=== PATIENT | female | born 1965 | race Caucasian/White ===

== ENCOUNTER 2019-07-26 11:37 | Observation (INO) | payer OTHER ==
[2019-07-26] MEDS ORDERED: Albuterol/Ipratropium NEB.SOL* Albuterol 2.5 MG/Ipratropium 0.5 MG 3 ML INH ONE (11:51)
--- NOTE | 2019-07-26 11:51 | ED ---
Respiratory - HPI Summary HPI Summary: 53 year old F presenting to [facility] with a chief complaint of a cough and sore throat since 2 weeks ago, worse since 3 days ago. The patient rates the pain 6/ 10 in severity. Patient reports hot flashes. Symptoms aggravated by nothing. Symptoms slightly alleviated by Albuterol. Patient denies any vomiting, diarrhea , leg pain or swelling, travel outside of the country, or contact with anyone diagnosed with coronavirus. Patient reports finishing antibiotics recently and that her cough developed a few days later. She was seen by her PCP today who advised her to come to the emergency department for further evaluation. Medication list reviewed. Allergy list reviewed. Home Medications Medication Instructions Recorded Confirmed Type Albuterol HFA INHALER* [Ventolin 2 puff INH Q4H PRN 06/09/18 06/09/18 History HFA Inhaler*] Atorvastatin* [Lipitor 20 MG*] 10 mg PO BEDTIME 06/09/18 06/09/18 History Levothyroxine TAB* [Synthroid TAB*] 1 tab PO QAM 06/09/18 06/09/18 History Varenicline (NF) [Chantix 1 MG TAB 1 tab PO BID 06/09/18 06/09/18 History (NF)] - History of Current Complaint Chief Complaint: EDUpperRespComplaint Stated Complaint: GENERAL ILLNESS PER EMS Time Seen by Provider: 07/26/19 11:43 Hx Obtained From: Patient Onset/Duration: Lasting Days, Still Present Timing: Constant Current Severity: Moderate Pain Intensity: 6 Aggravating Factor(s): Nothing Alleviating Factor(s): Other - Albuterol Associated Signs and Symptoms: Negative - Vomiting, diarrhea, leg pain or swelling - Allergy/Home Medications Allergies/Adverse Reactions: Allergies Allergy/AdvReac Type Severity Reaction Status Date / Time bee venom protein (honey bee) Allergy Difficulty Verified 06/09/18 15:12 Breathing codeine Allergy Difficulty Verified 06/09/18 15:12 Breathing Home Medications: Home Medications Albuterol HFA INHALER* [Ventolin HFA Inhaler*] 2 puff INH Q4H PRN 06/09/18 [ History Confirmed 07/26/19] Levothyroxine TAB* [Synthroid TAB*] 175 mcg PO QAM 06/09/18 [History Confirmed 07/26/19] Varenicline (NF) [Chantix 1 MG TAB (NF)] 1 tab PO BID 06/09/18 [History Confirmed 07/26/19] Ibuprofen 600 mg PO Q6H PRN 07/26/19 [History Confirmed 07/26/19] Multivitamins/Minerals TAB* [Theragran/minerals TAB*] 1 tab PO DAILY 07/26/19 [ History Confirmed 07/26/19] Nyquil Liquid 30 ml PO Q6H 07/26/19 [History Confirmed 07/26/19] PMH/Surg Hx/FS Hx/Imm Hx Endocrine/Hematology History: Reports: Hx Thyroid Disease - hypothyroidism Denies: Hx Diabetes Cardiovascular History: Reports: Hx Hypercholesterolemia Denies: Hx Hypertension GI History: Reports: Hx Gastroesophageal Reflux Disease History: Denies: Hx Renal Disease Musculoskeletal History: Denies: Hx Osteoporosis - Cancer History Cancer Type, Location and Year: THYROID Hx Chemotherapy: No Hx Radiation Therapy: Yes - RADIATION STARTING 07/03, THRYOID CANCER - Surgical History Surgery Procedure, Year, and Place: UTERINE ABLASION Infectious Disease History: No Infectious Disease History: Denies: History Other Infectious Disease, Traveled Outside the [place] in Last 30 Days - Family History Known Family History: Negative: Renal Disease - Social History Alcohol Use: None Substance Use Type: Reports: Excessive Caffeine Hx Tobacco Use: Yes Smoking Status (MU): Former Smoker Type: Cigarettes Amount Used/How Often: 1/2 PPD Review of Systems Positive: Other - Hot flashes Positive: Sore Throat Positive: Cough Negative: Vomiting, Diarrhea Musculoskeletal: Negative - Leg pain or swelling All Other Systems Reviewed And Are Negative: Yes Physical Exam - Summary Physical Exam Summary: Constitutional: Well-developed, Well-nourished, Alert. (-) Distressed Skin: Warm, Dry HENT: Normocephalic; Atraumatic Eyes: Conjunctiva normal Neck: Musculoskeletal ROM normal neck. (-) JVD, (-) Stridor, (-) Tracheal deviation Cardio: Rhythm regular, rate normal, Heart sounds normal; Intact distal pulses; Radial pulses are 2+ and symmetric. (-) Murmur Pulmonary/Chest wall: Effort normal. (-) Respiratory distress, expiratory wheezing in all lung zavaleta, left base with rhonchi. Abd: Soft, (-) tenderness, (-) Distension, (-) Guarding, (-) Rebound Musculoskeletal: (-) Edema Lymph: (-) Cervical adenopathy Neuro: Alert, Oriented x3 Psych: Mood and affect Normal Triage Information Reviewed: Yes Vital Signs On Initial Exam: Initial Vitals Temp Pulse Resp BP Pulse Ox 98.3 F 109 19 117/82 97 07/26/19 11:39 07/26/19 11:39 07/26/19 11:39 07/26/19 11:39 07/26/19 11:39 Vital Signs Reviewed: Yes Procedures - Sedation Patient Received Moderate/Deep Sedation with Procedure: No Diagnostics - Vital Signs Vital Signs Temp Pulse Resp BP Pulse Ox 07/26/19 11:39 98.3 F 109 19 117/82 97 - Laboratory Result Diagrams: 07/26/19 12:07 07/26/19 12:07 Lab Statement: Any lab studies that have been ordered have been reviewed, and results considered in the medical decision making process. - Radiology Chest x-ray Radiology Interpretation Completed By: Radiologist Summary of Radiographic Findings: No active cardiopulmonary disease is noted. ED physician has reviewed this report. - CT Chest/Thorax CTA CT Interpretation Completed By: Radiologist Summary of CT Findings: 1. No CT of evidence of pulmonary embolism. 2. There are densities in the medial aspect of the right upper lung with mild right hilar. lymphadenopathy as described above. Differential diagnosis includes atelectasis,. infectious pneumonia, inflammatory disease or neoplasm. ED physician has reviewed this report. - EKG 12:00 Cardiac Rate: Tachycardia - 107 BPM EKG Rhythm: Sinus Tachycardia Summary of EKG Findings: No ischemic changes. ED physician has reviewed and interpreted this EKG. Disposition - Course Course Of Treatment: Patient's here your eye symptoms, fever, cough. Patient was tachycardic upon arrival and borderline hypoxic. Patient had blood performed which was grossly unremarkable outside of evidence of hyperthyroid. Patient had a chest x-ray which showed no obvious abnormality. Due to patient' s subsequent hypoxia, a CTA of her chest was performed which showed a right upper lobe infiltrate versus cancer. Given patient's critical pictured is likely an infiltrate so she was treated with antibiotics. Patient was admitted to the hospital as she remained tachycardic. - Diagnoses Provider Diagnoses: Pneumonia, Tachycardia, Cough, Fever - Physician Notifications Discussed Care Of Patient With: Katherine Moreno Time Discussed With Above Provider: 15:30 Instructed by Provider To: Other - Discussed with Dr. Moreno who will admit the patient. Discharge ED - Sign-Out/Discharge Documenting (check all that apply): Patient Departure - Discharge Plan Condition: Stable Disposition: ADMITTED TO [facility] Referrals: Khadra Rabago [Primary Care Provider] - - Billing Disposition and Condition Condition: STABLE Disposition: Admitted to [facility] - Attestation Statements Document Initiated by Perryibe: Yes Documenting Scribe: Mulu Pacheco Provider For Whom Elieser is Documenting (Include Credential): Juan Miguel Garces MD Scribe Attestation: Mulu Olmos, scribed for Juan Miguel Garces MD on 07/26/19 at 1713. Scribe Documentation Reviewed: Yes Provider Attestation: The documentation as recorded by the Mulu correia accurately reflects the service I personally performed and the decisions made by Juan Miguel carr MD Status of Scribe Document: Viewed
[2019-07-26 12:15] LABS: ABS Basophils 0.1 10^3/ul (0-0.2); ABS Eosinophils 0.1 10^3/ul (0-0.6); ABS Lymphocytes 2.4 10^3/ul (1.0-4.8); ABS Monocytes 0.7 10^3/ul (0-0.8); ABS Neutrophils 6.2 10^3/ul (1.5-7.7); Eosinophil % 0.8 %; Hematocrit 41 % (35-47); Hemoglobin 14.1 g/dL (12.0-16.0); Lymphocyte % 25.6 %; Mean Corpuscular HGB Conc 35 g/dL (31-36); Mean Corpuscular Hemoglobin 30 pg (27-31); Mean Corpuscular Volume 88 fL (80-97); Mean Platelet Volume 8.3 fL (7.4-10.4); Platelet Count 264 10^3/uL (150-450); Red Blood Count 4.65 10^6 /uL (3.70-4.87); Red Cell Distribution Width 14 % (10-15); White Blood Count 9.4 10^3/uL (3.5-10.8)
[2019-07-26 12:34] LABS: Albumin 4.2 g/dL (3.2-5.2); Albumin/Globulin Ratio 1.4 (1-3); Calcium 9.8 mg/dL (8.6-10.3); EGFR African American 94.5 (>60); EGFR Non-African American 78.1 (>60); Total Bilirubin 0.4 mg/dL (0.2-1.0); Total Protein 7.2 g/dL (6.4-8.9)
[2019-07-26] MEDS ORDERED: Ibuprofen TAB* 600 MG PO ONE (13:04)
[2019-07-26] MEDS ORDERED: NS 0.9% 1000 ML** 1,000 ML IV ONE (13:04)
[2019-07-26] MEDS ORDERED: Iohexol 350* (CONTRAST) 500 ML MDV IV ONE (13:22)
[2019-07-26 14:05] LABS: TSH (Thyroid Stimulating Horm) 0.21 mcIU/mL (0.34-5.60)
[2019-07-26 14:53] LABS: Free T4 1.15 ng/dL (0.61-1.12)
[2019-07-26] MEDS ORDERED: cefTRIAXone(*) 1 GM in NS 0.9% 50 ML* 50 ML IVPB ONE (15:06)
[2019-07-26] MEDS ORDERED: Azithromycin 500 mg/250 ml NS 500 MG/250 ML BAG IVPB ONE (15:06)
[2019-07-26] MEDS ORDERED: Albuterol/Ipratropium NEB.SOL* Albuterol 2.5 MG/Ipratropium 0.5 MG 3 ML INH PRN (16:30)
[2019-07-26] MEDS ORDERED: Albuterol HFA INHALER* 8 gm MDI INH PRN (16:40)
[2019-07-26 17:13] LABS: Urine Appearance Clear; Urine Bilirubin Negative (Negative); Urine Blood Negative (Negative); Urine Color Yellow; Urine Glucose Negative (Negative); Urine Ketones Negative (Negative); Urine Nitrite Negative (Negative); Urine Protein Negative (Negative); Urine Urobilinogen Negative (Negative)
[2019-07-26 18:12] LABS: Magnesium 2.1 mg/dL (1.9-2.7)
--- NOTE | 2019-07-26 19:04 | HP ---
ADMISSION HISTORY AND PHYSICAL: DATE OF ADMISSION: 07/26/19 PRIMARY CARE PROVIDER: Khadra Rabago NP ADMITTING PHYSICIAN: Dr. Moreno * (dictated by Rafael Brice NP). CHIEF COMPLAINT: Sick for 3 to 4 weeks. HISTORY OF PRESENT ILLNESS: Ms. Sharp is a 53-year-old female with past medical history significant for hypothyroidism, hypercholesterolemia. She states that she had an appointment with her PCP today, which was a scheduled annual appointment and she was sent to the ER because of her tachycardia and low oxygen saturation levels. She states that she had a sinus infection a few weeks ago, was given Augmentin which she completed and then started to feel a little bit better. However, over the last 2 weeks, she has started feeling worse and states that over the last week especially she has been feeling much worse. She complains of cough for 2 weeks, which has been getting progressively worse along with sore throat. She has had significant shortness of breath with harsh cough since Tuesday. She states that her shortness of breath will resolve when she is not coughing. She also complains that with excessive coughing she will get a pain in the middle of her chest, which again resolves with cessation of coughing. She has taken her albuterol at home, which helped her a little bit, but not very much. She states that she has been coughing up yellow-green to frothy white sputum multiple times throughout the day. She does report having hot flashes. Denies any recent travel or known contact with anyone with coronavirus. She denies any other chest pain, shortness of breath not associated with coughing, nausea, vomiting, diarrhea, unusual swelling, history of bleeding or clotting disorders, myalgias. She recently quit smoking 1 plus weeks ago. She has been on Chantix. She has a significant smoking history starting at age 13, so for approximately 40 years. States she was smoking about 3 quarters of a pack per day with fluctuations over the years. She has quit a few times in between, but nothing has lasted. While in the emergency department, she did have imaging via chest x-ray as well as a chest and thorax CTA. Also had an EKG. She has had elevated heart rate and intermittent elevated respiratory rate. Blood pressures have remained stable. Does not have a significant white count. While in the ER, she did receive a DuoNeb, IV doses of azithromycin and ceftriaxone, 1 L of normal saline , a dose of ibuprofen. Hospital Medicine was asked to evaluate the patient for admission. PAST MEDICAL HISTORY: 1. Thyroid cancer, radiation status post total thyroidectomy. 2. Surgically induced Hypothyroidism 3. Hypercholesterolemia. 4. Kidney stones. 5. Depression. 6. Migraines. 7. Ovarian torsion related to tumor. PAST SURGICAL HISTORY: 1. Hand surgery with osteotomy. 2. Tubal ligation. 3. Uterine ablation. 4. Total hysterectomy in February 2019. 5. Total thyroidectomy. 6. Bilateral carpal tunnel surgery. HOME MEDICATIONS: 1. Ibuprofen 600 mg p.o. q.6 hours p.r.n. 2. NyQuil at bedtime. 3. DayQuil during the day. 4. Chantix 1 mg 1 tab p.o. b.i.d. 5. Levothyroxine 170 mcg p.o. q.a.m. 6. Albuterol HFA inhaler 2 puffs q.4 hours p.r.n. 7. Multivitamin/minerals 1 tab p.o. daily. ALLERGIES: 1. BEES. 2. CODEINE. FAMILY HISTORY: Father with heart disease, [place] at age 62. Mother with hypertension, heart disease, diabetes mellitus, ovarian cysts, and non-Hodgkin' s lymphoma. Maternal grandmother with osteoporosis, emphysema. Maternal grandfather with heart disease. SOCIAL HISTORY: The patient states that a surrogate decision maker for her would be her boyfriend, Choco Fraire, who is also her healthcare proxy. A secondary surrogate decision maker would be her oldest daughter, Rama Mohan. The patient has been a smoker since age 13 approximately 3 quarters of a pack per day; however, this has fluctuated. She has quit a few times in the past unsuccessfully; however, she did quit smoking 1 plus weeks ago and has since been on Chantix and seems to be doing well. States rare alcohol use. Denies any illicit drug use. She is . She has 3 children. She lives with her boyfriend. REVIEW OF SYSTEMS: A 12-point review of systems was completed with this patient. Please see HPI for all pertinent positives and negatives. PHYSICAL EXAMINATION CONSTITUTIONAL: The patient is sitting up in bed, in no acute distress, no difficulty breathing. LAST VITAL SIGNS: Temp 99.0, heart rate 112, respiratory rate 21, O2 sat 95% on room air, BP 103/76. HEENT: PERRL. No scleral icterus noted. RESPIRATORY: Significant expiratory wheezing noted to left upper lobe and quiet inspiratory crackles to right mid lobe. All other lobes clear throughout bilaterally. Normal respiratory effort. Productive cough elicited with deep breathing. CARDIOVASCULAR: Heart rate regular, but fast. S1, S2 present. No murmurs, rubs, or gallops noted. EXTREMITIES: No edema. NEURO: Alert and oriented x3. SKIN: Appears dry and intact. DIAGNOSTIC STUDIES/LAB DATA: Chest x-ray states no mediastinal shift. Heart is of normal size and configuration. Lung zavaleta are clear. Impression: No active cardiopulmonary disease is noted. Chest/thorax CTA, impression states no CT evidence of pulmonary embolism. There are densities in the medial aspect of the right upper lung with mild right hilar lymphadenopathy as described above. Differential diagnosis includes atelectasis, infectious pneumonia, inflammatory disease, or neoplasm. EKG shows sinus tachycardia with no ST elevations or depressions; flattened T- waves in aVL, V2 and V3; inverted Ts in V1. Laboratory values: CBC unremarkable. Chemistry: Sodium 137, potassium 4.0, chloride 102, carbon dioxide 26, BUN 10, creatinine 0.77, estimated GFR 78.1, BUN/creatinine ratio 13.0, glucose 113, lactic acid 1.1, calcium 9.8. Total bilirubin 0.4, AST 17, ALT 23, alk phosphatase 109. TSH 0.21, free T4 of 1.15. ASSESSMENT AND PLAN: Ms. Sharp is a 53-year-old female with past medical history significant for thyroid cancer with surgically induced hypothyroidism, hypercholesterolemia. She presented to the emergency department today stating that she had a sinus infection a few weeks ago, finished her antibiotic regimen , started feeling better, and then since about 2 weeks ago began to feel much worse and has gotten progressively worse over the last week. 1. Pneumonia. CT findings along with the patient's symptoms and clinical findings consistent with diagnosis of pneumonia. Has what sounds like may have been a double sickening effect after a sinus infection she was treated for recently. Pulmonary embolism was ruled out. However, differential diagnosis for the densities noted on imaging to the right upper lung with mild right hilar lymphadenopathy include atelectasis, infectious pneumonia, inflammatory disease, or neoplasm. Continue azithromycin and ceftriaxone IV. DuoNeb scheduled and p.r.n. UATs ordered. Sputum culture ordered. RT per protocol ordered. She will need followup imaging of the chest at some point after discharge. 2. Systemic inflammatory response syndrome. The patient is tachycardic and is also tachypneic at times. She does not appear acutely septic. However, it is very reasonable to follow sepsis protocol with this case. 3-hour bundle including blood cultures, lactic acid, IV fluids. She has already been bolused in the ER with 1 L and her blood pressures are stable, so I will not bolus her further. Her lactic acid level was 1.1, so I will not order another lactic acid to be drawn. At this time, she shows no signs of organ dysfunction. She also has a normal white count and is afebrile. She has already received antibiotics in the emergency department and we will continue with both azithromycin and ceftriaxone. 3. Surgically induced hypothyroidism. TSH 0.21, free T4 of 1.15. These values may be altered slightly in the setting of acute infection. She should follow up with her primary care provider after she is well. Continue usual levothyroxine dosage, she states she takes this at 3 a.m. every morning so that is when we will schedule it for. 4. FEN: Regular diet. 5. Code status: Full code. 6. DVT prophylaxis: Lovenox subcu. 7. Status: Stable. 8. Disposition: [address] [place] [address]. TIME SPENT: Approximately 60 minutes was spent on this admission with about half of that being [id number] with the patient for interview, exam, and reviewing plan of care. I did speak to the patient about the need for followup imaging of her chest at some point after discharge. This plan has been discussed with my attending physician, Dr. Moreno, and she agrees with this plan. RAFAEL BRICE, JANEL [id number]/[facility] #: [id number] JAY
[2019-07-26] MEDS: Enoxaparin(*) 40 MG/0.4 ML SYR SUBCUT SCH (19:14)
[2019-07-26] MEDS: Albuterol/Ipratropium NEB.SOL* Albuterol 2.5 MG/Ipratropium 0.5 MG 3 ML INH SCH (19:15)
[2019-07-26] MEDS: CMC:Varenicline (NF) 1 MG TAB PO SCH (21:45)
[2019-07-26] MEDS: Acetaminophen TAB* 325 MG PO PRN (23:44)
[2019-07-27] MEDS: Albuterol/Ipratropium NEB.SOL* Albuterol 2.5 MG/Ipratropium 0.5 MG 3 ML INH SCH ×4 (01:39→20:51)
[2019-07-27] MEDS: Levothyroxine TAB* 175 MCG TAB PO SCH (02:56)
[2019-07-27 05:33] LABS: ABS Eosinophils 0.1 10^3/ul (0-0.6); ABS Lymphocytes 2.1 10^3/ul (1.0-4.8); ABS Monocytes 0.5 10^3/ul (0-0.8); ABS Neutrophils 3.6 10^3/ul (1.5-7.7); Eosinophil % 1.4 %; Hematocrit 36 % (35-47); Hemoglobin 12.3 g/dL (12.0-16.0); Lymphocyte % 33.1 %; Mean Corpuscular HGB Conc 35 g/dL (31-36); Mean Corpuscular Hemoglobin 30 pg (27-31); Mean Corpuscular Volume 87 fL (80-97); Mean Platelet Volume 8.7 fL (7.4-10.4); Platelet Count 213 10^3/uL (150-450); Red Blood Count 4.09 10^6 /uL (3.70-4.87); Red Cell Distribution Width 15 % (10-15); White Blood Count 6.3 10^3/uL (3.5-10.8)
[2019-07-27 05:48] LABS: BUN/Creatinine Ratio 16.9 (8-20); Calcium 8.7 mg/dL (8.6-10.3); EGFR African American 103.8 (>60); EGFR Non-African American 85.8 (>60); Magnesium 2.1 mg/dL (1.9-2.7); Potassium 3.8 mmol/L (3.5-5.0)
[2019-07-27] MEDS: Multivitamins/Minerals TAB PO SCH (07:54)
[2019-07-27] MEDS: CMC:Varenicline (NF) 1 MG TAB PO SCH ×2 (07:54→20:06)
[2019-07-27] MEDS: Acetaminophen TAB* 325 MG PO PRN ×2 (07:54→20:06)
[2019-07-27] MEDS: Azithromycin 500 mg/250 ml NS 500 MG/250 ML BAG IVPB SCH (07:54)
[2019-07-27] MEDS: cefTRIAXone(*) 1 GM in NS 0.9% 50 ML* 50 ML IVPB SCH (11:32)
--- NOTE | 2019-07-27 14:05 | PN ---
Subjective Date of Service: 07/27/19 Interval History: patient seen, she feels better 50% less cough and shortness of breath. No fever. no overnight issue. Past Medical History: Unchanged from Admission Objective Active Medications: Acetaminophen (Tylenol Tab*) 650 mg PO Q4H PRN PRN Reason: PAIN - MILD Last Admin: 07/27/19 07:54 Dose: 650 mg Albuterol (Ventolin Hfa Inhaler*) 2 puff INH Q4H PRN PRN Reason: SOB/WHEEZING Albuterol/Ipratropium (Duoneb (Albuterol 2.5 Mg/Ipratropium 0.5 Mg)) 1 neb INH Q2H PRN PRN Reason: SOB/WHEEZING Albuterol/Ipratropium (Duoneb (Albuterol 2.5 Mg/Ipratropium 0.5 Mg)) 1 neb INH [id number] [facility] Last Admin: 07/27/19 13:26 Dose: 1 neb Enoxaparin Sodium (Lovenox(*)) 40 mg SUBCUT Q24H [facility] Last Admin: 07/26/19 19:14 Dose: 40 mg Azithromycin (Zithromax 500 Mg/250 Ml) 500 mg in 250 mls @ 250 mls/hr IVPB Q24H [facility] Last Admin: 07/27/19 07:54 Dose: 250 mls/hr Ceftriaxone Sodium 1 gm/ (Sodium Chloride) 50 mls @ 100 mls/hr IVPB Q24H [facility] Last Admin: 07/27/19 11:32 Dose: 100 mls/hr Levothyroxine Sodium (Synthroid Tab*) 175 mcg PO 0300 [facility] Last Admin: 07/27/19 02:56 Dose: 175 mcg Multivitamins/Minerals (Theragran/Minerals Tab*) 1 tab PO DAILY [facility] Last Admin: 07/27/19 07:54 Dose: 1 tab Varenicline (Chantix (Nf)) 1 mg PO BID [facility]; Protocol Last Admin: 07/27/19 07:54 Dose: 1 mg Vital Signs - 8 hr 07/27/19 07/27/19 07/27/19 06:27 07:15 08:00 Temperature 97.7 F Pulse Rate 106 100 Respiratory 18 17 17 Rate Blood Pressure 112/71 (mmHg) O2 Sat by Pulse 95 95 Oximetry 07/27/19 13:26 Temperature Pulse Rate 100 Respiratory 18 Rate Blood Pressure (mmHg) O2 Sat by Pulse 97 Oximetry Oxygen Devices in Use Now: None Appearance: awake, alert no distress. Eyes: No Scleral Icterus, - - EOMI Ears/Nose/Mouth/Throat: Clear Oropharnyx, Mucous Membranes Moist Neck: NL Appearance and Movements; NL JVP, Trachea Midline Respiratory: - - diffuse wheezing and scaterred rhonhci Cardiovascular: NL Sounds; No Murmurs; No JVD, No Edema Abdominal: NL Sounds; No Tenderness; No Distention Extremities: No Edema Neurological: Alert and Oriented x 3 Result Diagrams: 07/27/19 05:08 07/27/19 05:08 Microbiology and Other Data: Microbiology 07/26/19 17:45 Gram Stain - Final Sputum 07/26/19 16:38 Legionella Urinary Antigen - Final Urine Negative Legionella Antigen Streptococcus pneumoniae Ag Screen - Final Negative S. pneumo Antigen Assess/Plan/Problems-Billing Assessment: 53 y/o female admitted for Acute bronchial penumonaie - Patient Problems (1) Bronchial pneumonia Current Visit: Yes Status: Acute Code(s): J18.0 - BRONCHOPNEUMONIA, UNSPECIFIED ORGANISM SNOMED Code(s): 904955802 Comment: - Rocephin and Zithromax will continue for today. will change to po in am if improved - will add prednisone and quick taper (2) Pulmonary nodule Current Visit: Yes Status: Acute Code(s): R91.1 - SOLITARY PULMONARY NODULE SNOMED Code(s): 879353115 Comment: - in Light of smoking hisotry and prior history of thyroid cancer will need repeat oupatient 3 months to determine if it was reactive versus malignancy (3) Hypothyroid Current Visit: Yes Status: Acute Code(s): E03.9 - HYPOTHYROIDISM, UNSPECIFIED SNOMED Code(s): 59953571 Comment: - continue levothyroxine 175 mcg daily (4) DVT prophylaxis Current Visit: Yes Status: Acute Code(s): Z29.9 - ENCOUNTER FOR PROPHYLACTIC MEASURES, UNSPECIFIED SNOMED Code(s): 951332032 Comment: - lovenox 40 mg SQ daily
[2019-07-27] MEDS: Enoxaparin(*) 40 MG/0.4 ML SYR SUBCUT SCH (16:46)
[2019-07-27] MEDS ORDERED: Albuterol/Ipratropium NEB.SOL* Albuterol 2.5 MG/Ipratropium 0.5 MG 3 ML INH PRN (22:04)
[2019-07-28] MEDS: Levothyroxine TAB* 175 MCG TAB PO SCH (02:57)
[2019-07-28] MEDS: CMC:Varenicline (NF) 1 MG TAB PO SCH (09:17)
[2019-07-28] MEDS: Azithromycin 500 mg/250 ml NS 500 MG/250 ML BAG IVPB SCH (09:18)
[2019-07-28] MEDS: Multivitamins/Minerals TAB PO SCH (09:18)
[2019-07-28] MEDS: cefTRIAXone(*) 1 GM in NS 0.9% 50 ML* 50 ML IVPB SCH (10:50)
[2019-07-28 11:37] VITALS: BP 130/84
--- NOTE | 2019-07-29 21:17 | DS ---
CC: Primary Care Provider * DISCHARGE SUMMARY: DATE OF ADMISSION: 07/26/19 DATE OF DISCHARGE: 07/28/19 FINAL DISCHARGE DIAGNOSES: 1. Bronchial pneumonia. 2. Incidental pulmonary nodule. 3. Hypothyroidism. 4. Prior history of thyroid cancer, status post thyroidectomy. 5. Hyperlipidemia. 6. Depression. 7. History of migraine . HOSPITAL COURSE: The patient presented to [facility] Emergency Room with the chief complaint of sick for 3 to 4 days, who was referred from her primary care to the emergency room when she had her routine schedule visit and was found to be tachycardic and low oxygen saturation. She was apparently treated with Augmentin for 2 weeks prior. She stated she was feeling worse and not been feeling better, increased cough, progressively worse. She finally came into the ER associated with some yellow green phlegm. In the emergency room, she had initial diagnostic study, which was significant for chest x-ray did not show any acute pulmonary disease; however, CT of the chest, which was done and was negative for PE, shows some mild hilar lymphadenopathy; however, she did have some incidental finding that was significant for incidental 1.7 cm right hilar lymph node. Given her history of thyroid cancers, malignancy was not excluded from the differential diagnosis and I did relay that to the patient upon her discharge, otherwise no PE. She was seen by me for an initial encounter on 07/27/19. At that time, since the patient may have some chronic bronchitis picture given her history of smoking, whether she has underlying COPD yet to be determined and further worked up as an outpatient, I started her on steroid therapy and I kept her overnight. When she was seen again on , she had significant improvement and response to her steroid therapy, which was as expected. Her oxygen saturation improved from 92% to 97% and 99% on room air. She was cleared for discharge from my point of view with the strict instruction to abstain from smoking, follow up with primary care, and further follow up with repeat CT scan in 3 months regarding her lymphadenopathy especially with underlying prior history of thyroid cancer that should be taken seriously and follow up with CT scan versus referral to Pulmonary, I will defer that to her primary. Otherwise, at this time, she is being stable to be released home in stable condition. PHYSICAL EXAMINATION: Her vital signs were temperature 97.9, pulse 79, respiratory rate 16, satting 97%, blood pressure 130/84. General: She is awake , alert, pleasant, in no distress. Eager to go home. Head and Neck: Normocephalic, atraumatic. Supple. Lungs: Good airflow. Fine expiratory wheezing. Abdomen: Positive bowel sounds, nontender. Extremities: No pedal edema. YARD CLERK: There is no motor or focal sensory deficit. DIAGNOSTIC STUDIES/LABORATORY DATA: CBC unremarkable. Chemistry unremarkable. TSH 0.2. Free T4 of 1.15. Urinalysis is negative. Imaging studies: She had CT angiogram of the chest, was negative for PE, incidental 1.7 cm right hilar lymphadenopathy. Chest x-ray: No acute disease. Ultrasound of soft tissue was done on 07/26/19 at 7 p.m. of her thyroid did not show any evidence of focal abnormality. DISCHARGE RECOMMENDATIONS: 1. Follow up with her primary in 1 to 2 weeks. Further recommendation to have further CT of the chest done as an outpatient. 2. Take all medications as prescribed. DISCHARGE MEDICATIONS: 1. Tylenol as needed. 2. Zithromax 250 mg every day for 3 more days. 3. Cefdinir 300 mg twice a day for 5 more days. 4. Prednisone 20 mg tablet to take 2 tabs for 2 days, 1 tab for 4 days, half tab for 4 days and stop. 5. Continue Levoxyl 175 mcg. 6. Chantix 1 mg twice a day. 7. Albuterol. 8. Multivitamin daily. 9. NyQuil. 10. Ibuprofen 600 every 6 hours. DISCHARGE DISPOSITION: Home. DISCHARGE CONDITION: Stable. [id number]/[facility] #: [id number] [facility]
== END 2019-07-28 14:00 | disposition home or self-care (01) ==
LOC: ED 11:37 → MED 16:33
PROVIDERS: ADMIT Nurse Practitioner Family; ATTEND Internal Medicine
DX: J18.0 Bronchopneumonia, unspecified organism (principal); R91.1 Solitary pulmonary nodule; E03.9 Hypothyroidism, unspecified; Z85.850 Personal history of malignant neoplasm of thyroid; E78.5 Hyperlipidemia, unspecified; F32.9 Major depressive disorder, single episode, unspecified; E78.00 Pure hypercholesterolemia, unspecified; K21.9 Gastro-esophageal reflux disease without esophagitis; R65.10 Systemic inflammatory response syndrome (SIRS) of non-infectious origin without acute organ dysfunction; G43.909 Migraine, unspecified, not intractable, without status migrainosus; Z87.442 Personal history of urinary calculi; Z88.6 Allergy status to analgesic agent; Z79.890 Hormone replacement therapy; Z79.899 Other long term (current) drug therapy; Z87.891 Personal history of nicotine dependence
CPT/HCPCS: 36415; 71046; 71275; 76536; 80048; 80053; 81003; 83605; 83735; 84439; 84443; 85025; 87040; 87070; 87205; 87899; 93005; 94640; 96361; 96365; 96366; 96372; 96375; 96376; 99284; A9270-GY; G0378; J0456; J0696; J1650; J7512; Q9967

== ENCOUNTER 2019-08-07 14:57 | Emergency (ER) | payer OTHER ==
--- NOTE | 2019-08-07 15:17 | ED ---
Respiratory - HPI Summary HPI Summary: 53 y/o F presenting to [facility] c/o worsening shortness of breath with exertion, fatigue, intermittent chest pain, light headedness. Patient reports since discharge has been short of breath. Today felt fatigued and lightheaded while walking short distances. Furthermore reports "acid reflux like" CP for several days. Patient recently seen here 07/[address] Chest done which showed some lymphadenopathy and concern for chronic bronchitis. She was hypoxic to 92% and admitted. She was d/c on 07/27 on cefdinir, zithromax, and prednisone. Denies cardiac hx, hx [place] or CHF. Recent CTA w/o PE. No recent fevers. - History of Current Complaint Chief Complaint: EDShortnessOfBreath Stated Complaint: FEVER PER PT Time Seen by Provider: 08/07/19 15:00 Hx Obtained From: Patient Onset/Duration: Lasting Days, Still Present Timing: Constant Current Severity: Moderate Pain Intensity: 5 Aggravating Factor(s): Exertion Alleviating Factor(s): Nothing - Allergy/Home Medications Allergies/Adverse Reactions: Allergies Allergy/AdvReac Type Severity Reaction Status Date / Time bee venom protein (honey bee) Allergy Difficulty Verified 06/09/18 15:12 Breathing codeine Allergy Difficulty Verified 06/09/18 15:12 Breathing Home Medications: Home Medications Levothyroxine TAB* [Synthroid TAB*] 175 mcg PO DAILY 06/09/18 [History Confirmed 08/07/19] Varenicline (NF) [Chantix 1 MG TAB (NF)] 1 tab PO BID 06/09/18 [History Confirmed 08/07/19] Multivitamins/Minerals TAB* [Theragran/minerals TAB*] 1 tab PO DAILY 07/26/19 [ History Confirmed 08/07/19] Amoxicillin/Clavulanate TAB* [Augmentin TAB 875*] 875 mg PO BID 5 Days #10 tab 08/07/19 [Rx] DOXYcycline CAP(*) [DOXYcycline 100MG CAP(*)] 100 mg PO BID 5 Days #10 cap 08/06 [Rx] predniSONE 20 mg TAB [Deltasone 20 MG TAB*] 20 mg PO DAILY 08/07/19 [History Confirmed 08/07/19] PMH/Surg Hx/FS Hx/Imm Hx Endocrine/Hematology History: Reports: Hx Thyroid Disease - hypothyroidism Denies: Hx Diabetes Cardiovascular History: Reports: Hx Hypercholesterolemia Denies: Hx Hypertension Respiratory History: Denies: Hx Asthma, Hx Chronic Obstructive Pulmonary Disease (COPD) GI History: Reports: Hx Gastroesophageal Reflux Disease - Cancer History Cancer Type, Location and Year: THYROID Hx Chemotherapy: No Hx Radiation Therapy: Yes - RADIATION STARTING 07/03, THRYOID CANCER - Surgical History Surgery Procedure, Year, and Place: UTERINE ABLASION Infectious Disease History: No Infectious Disease History: Denies: History Other Infectious Disease, Traveled Outside the [place] in Last 30 Days - Family History Known Family History: Positive: Other - NEG: breast CA - Social History Alcohol Use: None Substance Use Type: Reports: None Hx Tobacco Use: Yes Smoking Status (MU): Former Smoker Type: Cigarettes Amount Used/How Often: 1/2 PPD Review of Systems Positive: Fatigue Positive: Chest Pain Positive: Shortness Of Breath Neurological/Mental Status: Other - light headedness All Other Systems Reviewed And Are Negative: Yes Physical Exam - Summary Physical Exam Summary: Constitutional: Well-developed, Well-nourished, Alert. (-) Distressed Skin: Warm, Dry HENT: Normocephalic; Atraumatic Eyes: Conjunctiva normal Neck: Musculoskeletal ROM normal neck. (-) JVD, (-) Stridor, (-) Nuchal rigidity Cardio: Rhythm regular, rate normal, Heart sounds normal; Intact distal pulses; Radial pulses are 2+ and symmetric. (-) Murmur Pulmonary/Chest wall: Effort normal. (-) Respiratory distress, (-) Wheezes, (-) Rales Abd: Soft, (-) tenderness, (-) Distension, (-) Guarding, (-) Rebound Musculoskeletal: (-) Edema Lymph: (-) Cervical adenopathy Neuro: Alert, Oriented x3 Psych: Mood and affect Normal Triage Information Reviewed: Yes Vital Signs On Initial Exam: Initial Vitals Temp Pulse Resp BP Pulse Ox 98.7 F 101 18 129/100 95 08/07/19 15:06 08/07/19 15:06 08/07/19 15:06 08/07/19 15:06 08/07/19 15:06 Vital Signs Reviewed: Yes Procedures - Sedation Patient Received Moderate/Deep Sedation with Procedure: No Diagnostics - Vital Signs Vital Signs Temp Pulse Resp BP Pulse Ox 08/07/19 15:06 98.7 F 101 18 129/100 95 - Laboratory Result Diagrams: 08/07/19 15:50 08/07/19 15:50 Lab Statement: Any lab studies that have been ordered have been reviewed, and results considered in the medical decision making process. - Radiology CXR Radiology Interpretation Completed By: Radiologist - IMPRESSION: 1. SIMILAR RIGHT PERIHILAR LYMPHADENOPATHY AND PERIBRONCHIAL CUFFING IN THE RIGHT UPPER LUNG ZONE. RECOMMEND FOLLOWING TO RADIOLOGIC RESOLUTION. 2. LINEAR AIRSPACE OPACIFICATION THE RIGHT UPPER LUNG ZONE (ATELECTASIS VERSUS INFILTRATE). ED physician has reviewed this imaging report. - EKG 1639 Cardiac Rate: NL - 87 BPM EKG Rhythm: Sinus Rhythm - An EKG at 1639 reveals normal sinus rhythm 87 BPM, nml axis, nml intervals. No STEMI. No acute changes. ED physician has reviewed and interpreted this EKG. Re-Evaluation - Re-Evaluation First Eval Re-Evaluation Time: 15:55 Change: Unchanged - patient ambulated with ambulatory sat 94-95 and HR in high 90s to low 100s Second Eval Re-Evaluation Time: 18:10 Change: Improved - labs notable for mildly elevated free T4 in setting of known hypothyrodism. CXR w ?infiltrate, will treat. Disposition - Course Course Of Treatment: 53 y/o F w hx hypothyroidism, recent bronchitis p/w SOB, lightheadedness. - VS mild tachycardia, normal SpO2. Easy WOB. Labs w/o leukocytosis, EKG unremarkable, trop negative. Suspect CP in setting of cough/ URI symptoms. Heart score 3, low risk. Mild elevated TSH in known hypothyroidism. Ambulated in room w SpO2 95%. COVID test sent, on precautions. CXR w ?R sided infiltrate. Will treat given symptomatic w augmentin and doxycycline. Advised to quarantine until COVID returns. - Diagnoses Provider Diagnoses: Pneumonia Discharge ED - Sign-Out/Discharge Documenting (check all that apply): Patient Departure - Discharge Plan Condition: Stable Disposition: HOME Prescriptions: Amoxicillin/Clavulanate TAB* [Augmentin TAB 875*] 875 mg PO BID 5 Days #10 tab DOXYcycline CAP(*) [DOXYcycline 100MG CAP(*)] 100 mg PO BID 5 Days #10 cap Patient Education Materials: Bacterial Pneumonia (ED) Forms: COVID-19 Tested & Isolation Referrals: Khadra Rabago [Primary Care Provider] - Additional Instructions: You were seen in the emergency department for shortness of breath. Your x-ray showed a possible small infiltrate on the right side which we are treating with Augmentin doxycycline. Your COVID test is pending, please isolate yourself and refer to the handout for further instructions. Please follow up with your primary care doctor in next 2-3 days and return to emergency department for shortness of breath, chest pain, worsening or concerning symptoms. It was a pleasure taking care of you today. - Billing Disposition and Condition Condition: STABLE Disposition: Home - Attestation Statements Document Initiated by Elieser: Yes Documenting Scribe: Marie Feliciano Provider For Whom Elieser is Documenting (Include Credential): Mirna Morley MD Scribe Attestation: IMarie, scribed for Mirna Morley MD on 08/07/19 at 1831. Scribe Documentation Reviewed: Yes Provider Attestation: The documentation as recorded by the Marie correia accurately reflects the service I personally performed and the decisions made by , Mirna Morley MD Status of Scribreal Document: Viewed
[2019-08-07 16:14] LABS: ABS Monocytes 0.4 10^3/ul (0-0.8); ABS Neutrophils 8.1 10^3/ul (1.5-7.7); Eosinophil % 0.3 %; Hematocrit 40 % (35-47); Hemoglobin 13.7 g/dL (12.0-16.0); Lymphocyte % 19.3 %; Mean Corpuscular HGB Conc 34 g/dL (31-36); Mean Corpuscular Hemoglobin 30 pg (27-31); Mean Corpuscular Volume 87 fL (80-97); Mean Platelet Volume 8.3 fL (7.4-10.4); Nucleated Red Blood Cells % 0.1; Platelet Count 282 10^3/uL (150-450); Red Blood Count 4.56 10^6 /uL (3.70-4.87); Red Cell Distribution Width 14 % (10-15); White Blood Count 10.6 10^3/uL (3.5-10.8)
[2019-08-07 16:14] LABS: Influenza A Molecular Negative (Negative); Influenza B Molecular Negative (Negative)
--- OUTSIDE RECORDS SUMMARY | 2019-08-07 16:24 | XMS REPORT | Continuity of Care Document ---
:1965 External Reference #:[id number] Author Name Fredis Roque M.D. 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 Onset: 09/21/2011 FH: Cardiovascular disease Krista Galvez M.D. Onset: 09/21/2011 Obesity Krista Galvez M.D. Onset: 09/21/2011 Sprain of knee and leg Krista Galvez M.D. Onset: 09/21/2011 Sprain of hip Krista Galvez M.D. Onset: 09/21/2011 Chest pain Krista Galvez M.D. Onset: 09/21/2011 Social History Type Date Description Comments Sex Unknown Tobacco Use Start: Unknown Patient is a current smoker, smokes every day Allergies, Adverse Reactions, Alerts Active Allergies Reaction Severity Comments Date Codeine Anaphylaxis 09/21/2011 Bee Sting Allergic asthma Severe 10/01/2014 Medications Active Medications SIG Qnty Indications Ordering Provider Date Ibuprofen prn Unknown 200mg Capsules Multi Complete daily Unknown Capsules Biotin 5000 1 po qd Unknown Capsules B-6 100mg 1 po qd Unknown Tablets Super B-Complex Unknown Capsules Medications Administered in Office Medication SIG Qnty Indications Ordering Provider Date PPD Injection Aydin Hassan NP 11/28/2015 Immunizations CPT Code Status Date Vaccine Lot # [id number] Given 12/01/2015 Varicella (Chicken Pox) Immunization [id number] Given 10/01/2014 Tdap - Tetanus/Diptheria/Acellular Pertussis [id number] Given 10/18/2012 Measles Mumps And Rubella MMR [id number] Vital Signs Date Vital Result Comment 11/28/2015 3:22pm Height 63.50 inches 5'3.50" Weight 196.00 lb Heart Rate 92 /min BP Systolic Sitting 122 mmHg BP Diastolic Sitting 78 mmHg Body Temperature 97.9 F O2 % BldC Oximetry 97 % BMI (Body Mass Index) 34.2 kg/m2 10/01/2014 1:01pm Height 63.50 inches 5'3.50" Weight 197.75 lb Heart Rate 94 /min BP Systolic Sitting 120 mmHg BP Diastolic Sitting 80 mmHg Body Temperature 97.9 F O2 % BldC Oximetry 94 % BMI (Body Mass Index) 34.5 kg/m2 Results Description No Information Available Procedures Date Code Description Status 10/08/2014 039102590 Bone Mineral Density Test Completed 10/08/2014 [id number] Mammogram Completed 03/23/2013 [id number] Mammogram Completed 03/23/2012 [id number] Mammogram Completed 09/21/2011 [id number] Mammogram Completed Medical Devices Description No Information Available Encounters Type Date Location Provider Dx Diagnosis Office Visit 07/26/2019 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 07/27/2019 R91.1 Solitary pulmonary nodule Fredis Roque M.D. 07/27/2019 E03.9 Hypothyroidism, unspecified Fredis Roque M.D. 07/26/2019 J18.9 Pneumonia, unspecified organism ROSANNA Musa 07/26/2019 R65.10 Systemic inflammatory response syndrome ROSANNA Musa (Sirs) of non-infectious origin without acute organ dysfunction Plan of Treatment No Information Available Functional Status Description No Information Available Mental Status Description No Information Available Referrals Description No Information Available
--- OUTSIDE RECORDS SUMMARY | 2019-08-07 16:24 | XMS REPORT | Continuity of Care Document ---
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 Medicine Problems Active Problems Provider Date Ex-smoker [...] CPT Code Status Date Vaccine Lot # [id number] Given 12/01/2015 Varicella (Chicken Pox) Immunization [id number] Given 10/01/2014 Tdap - Tetanus/Diptheria/Acellular Pertussis [id number] Given 10/18/2012 Measles Mumps And Rubella MMR [id number] Vital Signs Date Vital Result Comment 11/28/2015 [...] Available Procedures Date Code Description Status 10/08/2014 [id number] Bone Mineral Density Test Completed 10/08/2014 [id number] Mammogram Completed 03/23/2013 [id number] Mammogram Completed 03/23/2012 [id number] Mammogram Completed 09/21/2011 [id number] Mammogram Completed Medical Devices Description No Information Available Encounters Type Date Location Provider Dx Diagnosis Office Visit 07/26/2019 [facility] Albin Musa18.9 Pneumonia, 9:07a 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
--- OUTSIDE RECORDS SUMMARY | 2019-08-07 16:24 | XMS REPORT | Continuity of Care Document ---
:1965 External Reference #:[id number] Author Name Fredis Roque M.D. 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 Active Problems Provider Date Ex-smoker [...] CPT Code Status Date Vaccine Lot # [id number] Given 12/01/2015 Varicella (Chicken Pox) Immunization [id number] Given 10/01/2014 Tdap - Tetanus/Diptheria/Acellular Pertussis [id number] Given 10/18/2012 Measles Mumps And Rubella MMR [id number] Vital Signs Date Vital Result Comment 11/28/2015 [...] Available Procedures Date Code Description Status 10/08/2014 [id number] Bone Mineral Density Test Completed 10/08/2014 [id number] Mammogram Completed 03/23/2013 [id number] Mammogram Completed 03/23/2012 [id number] Mammogram Completed 09/21/2011 [id number] Mammogram Completed Medical Devices Description No Information Available Encounters Type Date Location Provider Dx Diagnosis Office Visit 07/28/2019 [facility] Fredis J18.0 Bronchopneumonia, 9:08a elyssa Casey M.D. 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 07/28/2019 R91.1 Solitary pulmonary nodule Fredis Roque M.D. 07/28/2019 E03.9 Hypothyroidism, unspecified Fredis Roque M.D. 07/27/2019 J18.0 Bronchopneumonia, unspecified organism Fredis Roque M.D. 07/27/2019 R91.1 Solitary pulmonary nodule Fredis Roqeu M.D. 07/27/2019 E03.9 Hypothyroidism, unspecified Fredis Roque M.D. 07/26/2019 J18.9 Pneumonia, unspecified organism ROSANNA Musa 07/26/2019 R65.10 Systemic inflammatory response syndrome ROSANNA Musa (Sirs) of non-infectious origin without acute organ dysfunction Plan of Treatment No Information Available Functional Status Description No Information Available Mental Status Description No Information Available Referrals Description No Information Available
[2019-08-07 16:38] LABS: Albumin/Globulin Ratio 1.3 (1-3); BUN/Creatinine Ratio 19.2 (8-20); Calcium 9.9 mg/dL (8.6-10.3); EGFR African American 93.1 (>60); Globulin 3.2 g/dL (2-4); Potassium 4.1 mmol/L (3.5-5.0); Total Bilirubin 0.3 mg/dL (0.2-1.0); Total Protein 7.2 g/dL (6.4-8.9)
[2019-08-07 16:39] LABS: Troponin I 0.01 ng/mL (<0.03)
[2019-08-07 16:53] LABS: TSH (Thyroid Stimulating Horm) 0.15 mcIU/mL (0.34-5.60)
[2019-08-07 17:47] LABS: Free T4 1.36 ng/dL (0.61-1.12)
[2019-08-07] MEDS ORDERED: Amoxicillin/Clavulanate TAB* 875 MG PO ONE (18:06)
[2019-08-07] MEDS ORDERED: DOXYcycline CAP(*) 100 MG PO ONE (18:06)
[2019-08-07 18:28] VITALS: BP 130/81
== END 2019-08-07 18:43 | disposition home or self-care (01) ==
LOC: ED 14:57
DX: J18.9 Pneumonia, unspecified organism (principal); E03.9 Hypothyroidism, unspecified; E78.00 Pure hypercholesterolemia, unspecified; K21.9 Gastro-esophageal reflux disease without esophagitis; Z87.891 Personal history of nicotine dependence; Z79.890 Hormone replacement therapy; Z79.899 Other long term (current) drug therapy; Z88.5 Allergy status to narcotic agent
CPT/HCPCS: 36415; 71045; 80053; 84439; 84443; 84484; 85025; 93005; 99283; A9270-GY; U0002